=== PATIENT | male | born 1980 | race Caucasian/White ===

== ENCOUNTER 2016-09-30 07:18 | Emergency (ER) | payer SELFPAY ==
[2016-09-30] MEDS ORDERED: Fluorescein Sodium 1 mg Ophth Strip ONE (07:46)
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
== END 2016-09-30 08:10 | disposition home or self-care (01) ==
LOC: ER 07:18
DX: H57.8 Other specified disorders of eye and adnexa (principal); F17.200 Nicotine dependence, unspecified, uncomplicated; Z90.49 Acquired absence of other specified parts of digestive tract
CPT/HCPCS: J7030; Z7502